=== PATIENT | female | born 1995 | race Caucasian/White ===

== ENCOUNTER 2016-10-11 09:46 | Outpatient (CLI) | payer BC, MEDICAID, OTHER | END 2016-10-11 09:47 | disposition home or self-care (01) | DX: N39.0 Urinary tract infection, site not specified (principal) ==

== ENCOUNTER 2017-11-09 13:36 | Outpatient (CLI) | payer BC ==
[2017-11-09 19:40] LABS: T4 (THYROXINE) 6.6 ug/dL (6.09-12.23)
[2017-11-09 19:44] LABS: THYROID STIMULATING HORMONE 1.03 uIU/mL (0.34-5.60)
[2017-11-09 19:46] LABS: FREE T4 (FREE THYROXINE) 0.73 ng/dL (0.58-1.64)
== END 2017-11-09 13:37 | disposition home or self-care (01) ==
LOC: LAB.N 13:36
PROVIDERS: ATTEND Registered Nurse
DX: E07.89 Other specified disorders of thyroid (principal)
CPT/HCPCS: 36415; 84436; 84439; 84443

== ENCOUNTER 2017-12-19 07:39 | Outpatient (CLI) | payer BC ==
--- NOTE | 2017-12-19 09:59 | Ultrasound Report ---
THYROID ULTRASOUND: 12/19/2017 CLINICAL INDICATION: Thyromegaly on clinical exam. TECHNIQUE: Real-time scanning was performed with [employer] representative static images obtained. FINDINGS: The right lobe measures 4.5 x 1.6 x 1.5 cm, and the left lobe measures 4.8 x 1.3 x 1.3 cm. The isthmus measures 2 mm. Both lobes demonstrate normal echotexture. No focal lesion is seen. No adenopathy is present. IMPRESSION: NORMAL THYROID ULTRASOUND. TD: 12/19/2017 09:59
== END 2017-12-19 07:40 | disposition home or self-care (01) ==
LOC: DI 07:39
PROVIDERS: ATTEND Registered Nurse
DX: E04.9 Nontoxic goiter, unspecified (principal)
CPT/HCPCS: 76536